=== PATIENT | male | born 1960 | race Caucasian/White ===

== ENCOUNTER 2024-06-12 16:05 | Emergency (ER) | payer BC ==
[2024-06-12 16:19] VITALS: PULSE 90; TEMP 97.9; O2SAT 98
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
[2024-06-12] MEDS: TORAdol 10 MG TABLET PO ONE (17:08)
[2024-06-12 17:15] VITALS: BP 145/90; RESP 18
--- NOTE | 2024-06-12 20:24 | XRAY ---
Indication: Pain and swelling following injury. Comparison: None 3 view right hand demonstrates minimal/mild 1st metacarpal multangular scaphoid degenerative changes, 4 mm well-circumscribed heterotopic ossification posterior to lunate, widened scapholunate interval favoring underlying ligamentous tear, radioulnar carpal degenerative chondrocalcinosis, and mild scattered vascular calcifications. No acute bony, articular, or soft tissue abnormalities.
== END 2024-06-12 17:16 | disposition home or self-care (01) ==
LOC: ED 16:05
DX: S62.111A Displaced fracture of triquetrum [cuneiform] bone, right wrist, initial encounter for closed fracture (principal); W20.8XXA Other cause of strike by thrown, projected or falling object, initial encounter; E78.5 Hyperlipidemia, unspecified; I10 Essential (primary) hypertension; E11.9 Type 2 diabetes mellitus without complications; Z79.899 Other long term (current) drug therapy
CPT/HCPCS: 73130; 99283; L3908; A9270-GY